=== PATIENT | male | born 1990 ===

== ENCOUNTER 2019-03-24 12:09 | Emergency (ER) | payer OTHER ==
[2019-03-24] MEDS ORDERED: Ketorolac 60 MG/2 ML SDV IM ONE (12:22)
[2019-03-24 12:29] VITALS: BP 113/80; PULSE 95
[2019-03-24 13:24] LABS: BLOOD UREA NITROGEN,BUN 17 mg/dL (7.0-18.0); CARBON DIOXIDE,CO2 25.5 mmol/L (21.0-32.0); CHLORIDE,CL 105 mmol/L (98-107); GLUCOSE RANDOM 104 mg/dL (74-106); POTASSIUM,K 4.1 mmol/L (3.5-5.1); SODIUM,NA 139 mmol/L (136-148)
--- NOTE | 2019-03-24 13:44 | EDM.PDOC ---
ED HPI GENERAL MEDICAL PROBLEM - General Chief Complaint: Back Pain or Injury Stated Complaint: LEFT LOWER BACK PAIN Time Seen by Provider: 03/24/19 13:44 Source of Information: Reports: Patient - History of Present Illness INITIAL COMMENTS - FREE TEXT/NARRATIVE: HISTORY AND PHYSICAL: History of present illness: [Patient presents with initial complaint of left lower back pain, 5 out of 10 worsening today he states he has had similar pain off and on over the last 6 years or longer no fever nausea vomiting chills sweats no chest pain shortness breath headache dizziness palpitation no bowel or urine symptoms On exam pain appears to be actually left flank to left upper quadrant pain worsened by movement or rotation no splenic enlargement is appreciated no recent trauma or injury no bruising of the flanks Denies any other chronic illness or disease ] Review of systems: As per history of present illness and below otherwise all systems reviewed and negative. Past medical history: As per history of present illness and as reviewed below otherwise noncontributory. Surgical history: As per history of present illness and as reviewed below otherwise noncontributory. Social history: No reported history of drug or alcohol abuse. Family history: As per history of present illness and as reviewed below otherwise noncontributory. Physical exam: HEENT: Atraumatic, normocephalic, pupils reactive, negative for conjunctival pallor or scleral icterus, mucous membranes moist, throat clear, neck supple, nontender, trachea midline. Lungs: Clear to auscultation, breath sounds equal bilaterally, chest nontender. Heart: S1S2, regular, negative for clicks, rubs, or JVD. Abdomen: Soft, nondistended, nontender. Negative for masses or hepatosplenomegaly. Negative for costovertebral tenderness. Pelvis: Stable nontender. Genitourinary: Deferred. Rectal: Deferred. Extremities: Atraumatic, negative for cords or calf pain. Neurovascular unremarkable. Neuro: Awake, alert, oriented. Cranial nerves II through XII unremarkable. Cerebellum unremarkable. Motor and sensory unremarkable throughout. Exam nonfocal. Diagnostics: [CBC CMP UA CT abdomen pelvis with contrast] Therapeutics: [None ] Impression: [Left flank pain Insistent with muscle spasm] Definitive disposition and diagnosis as appropriate pending reevaluation and review of above. L lower back and flank Pain Score (Numeric/FACES): 10 - Related Data Allergies Allergy/AdvReac Type Severity Reaction Status Date / Time No Known Allergies Allergy Verified 03/24/19 12:29 Home Meds: Home Meds . [No Known Home Meds] 03/24/19 [History] Past Medical History - Past Health History Medical/Surgical History: Denies Medical/Surgical History Social & Family History - Tobacco Use Smoking Status *Q: Never Smoker - Caffeine Use Caffeine Use: Reports: Coffee - Recreational Drug Use Recreational Drug Use: No ED ROS GENERAL - Review of Systems Review Of Systems: See Below ED EXAM, GENERAL - Physical Exam Exam: See Below Course - Vital Signs Last Recorded V/S: Last Vital Signs Temp 97.2 F 03/24/19 12:24 Pulse 95 03/24/19 12:24 Resp 18 03/24/19 12:24 BP 113/80 03/24/19 12:24 Pulse Ox 96 03/24/19 12:24 - Orders/Labs/Meds Labs: Laboratory Tests 03/24/19 03/24/19 03/24/19 Range/Units 12:40 12:54 12:54 WBC 7.62 (4.0-11.0) K/uL RBC 5.19 (4.50-5.90) M/uL Hgb 17.1 H (13.0-17.0) g/dL Hct 46.9 (38.0-50.0) % MCV 90.4 (80.0-98.0) fL MCH 32.9 H (27.0-32.0) pg MCHC 36.5 (31.0-37.0) g/dL RDW Std Deviation 40.1 (28.0-62.0) fl RDW Coeff of [place] 12 (11.0-15.0) % Plt Count 224 (150-400) K/uL MPV 10.70 (7.40-12.00) fL Neut % (Auto) 52.5 (48.0-80.0) % Lymph % (Auto) 35.2 (16.0-40.0) % [place] % (Auto) 8.0 (0.0-15.0) % Eos % (Auto) 4.2 (0.0-7.0) % Baso % (Auto) 0.1 (0.0-1.5) % Neut # (Auto) 4.0 (1.4-5.7) K/uL Lymph # (Auto) 2.7 H (0.6-2.4) K/uL [place] # (Auto) 0.6 (0.0-0.8) K/uL Eos # (Auto) 0.3 (0.0-0.7) K/uL Baso # (Auto) 0.0 (0.0-0.1) K/uL Nucleated RBC % 0.0 /100WBC Nucleated RBCs # 0 K/uL Sodium 139 (136-148) mmol/L Potassium 4.1 (3.5-5.1) mmol/L Chloride 105 (98-107) mmol/L Carbon Dioxide 25.5 (21.0-32.0) mmol/L BUN 17 (7.0-18.0) mg/dL Creatinine 1.0 (0.8-1.3) mg/dL Est Cr Clr Drug Dosing 93.96 mL/min Estimated GFR (MDRD) > 60.0 ml/min Glucose 104 (74-106) mg/dL Calcium 9.9 (8.5-10.1) mg/dL Total Bilirubin 0.5 (0.2-1.0) mg/dL AST 20 (15-37) IU/L ALT 46 (14-63) IU/L Alkaline Phosphatase 95 (46-116) U/L Total Protein 7.7 (6.4-8.2) g/dL Albumin 4.2 (3.4-5.0) g/dL Globulin 3.5 (2.6-4.0) g/dL Albumin/Globulin Ratio 1.2 (0.9-1.6) Urine Color YELLOW Urine Appearance CLEAR Urine pH 5.5 (5.0-8.0) Ur Specific [place] >= 1.030 (1.001-1.035) Urine Protein NEGATIVE (NEGATIVE) mg/dL Urine Glucose (UA) NEGATIVE (NEGATIVE) mg/dL Urine Ketones NEGATIVE (NEGATIVE) mg/dL Urine Occult Blood NEGATIVE (NEGATIVE) Urine Nitrite NEGATIVE (NEGATIVE) Urine Bilirubin NEGATIVE (NEGATIVE) Urine Urobilinogen 0.2 (<2.0) EU/dL Ur Leukocyte Esterase NEGATIVE (NEGATIVE) Meds: Medications Discontinued Medications Generic Name Dose Route Start Last Admin Trade Name Freq PRN Reason Stop Dose Admin Ketorolac Tromethamine 60 mg 03/24/19 12:22 03/24/19 12:40 Toradol IM 03/24/19 12:23 60 mg ONETIME ONE Administration Departure - Departure Time of Disposition: 14:34 Disposition: Home, Self-Care 01 Condition: Good Clinical Impression: Left flank pain - Discharge Information Referrals: PCP,None [Primary Care Provider] - Forms: ED Department Discharge Additional Instructions: The following information is given to patients seen in the emergency department who are being discharged to home. This information is to outline your options for follow-up care. We provide all patients seen in our emergency department with a follow-up referral. The need for follow-up, as well as the timing and circumstances, are variable depending upon the specifics of your emergency department visit. If you don't have a primary care physician on staff, we will provide you with a referral. We always advise you to contact your personal physician following an emergency department visit to inform them of the circumstance of the visit and for follow-up with them and/or the need for any referrals to a consulting specialist. The emergency department will also refer you to a specialist when appropriate. This referral assures that you have the opportunity for follow-up care with a specialist. All of these measure are taken in an effort to provide you with optimal care, which includes your follow-up. Under all circumstances we always encourage you to contact your private physician who remains a resource for coordinating your care. When calling for follow-up care, please make the office aware that this follow-up is from your recent emergency room visit. If for any reason you are refused follow-up, please contact the [facility] emergency department at and asked to speak to the emergency department charge nurse.
--- NOTE | 2019-03-24 14:27 | CT ---
INDICATION: Left flank pain. TECHNIQUE: Noncontrast axial images with sagittal and coronal reconstructions. COMPARISON: None. FINDINGS: Lower chest: Normal heart size. No pericardial effusion. Lung bases are clear. Abdomen and pelvis: The unenhanced liver, spleen, pancreas, adrenal glands and kidneys are unremarkable. Specifically, no urinary tract stones or hydroureteronephrosis. No calcified stones within the gallbladder. No bile duct dilatation. Normal caliber abdominal aorta. No abnormally dilated bowel to suggest obstruction. No appreciable abnormal bowel wall thickening. Normal appendix. Unremarkable urinary bladder and prostate. Normal caliber abdominal aorta. No free or free fluid. No lymphadenopathy. Bones: No acute abnormality. Low-grade degenerative changes lumbar spine. IMPRESSION: No acute abnormality is identified in the abdomen or pelvis. Specifically, no urinary tract stones or hydronephrosis. Dictated by Torito José MD @ 03/24/2019 2:25:52 PM Please note that all CT scans at this facility use dose modulation, iterative reconstruction, and/or weight-based dosing when appropriate to reduce radiation dose to as low as reasonably achievable. Dictated by: Torito José MD @ 03/24/2019 14:26:13 (Electronically Signed)
== END 2019-03-24 15:02 | disposition home or self-care (01) ==
LOC: MW.ED 12:09
DX: R10.12 Left upper quadrant pain (principal)
CPT/HCPCS: 36415; 74176; 80053; 81003; 85025; 96372; 99284; J1885